=== PATIENT | female | born 1930 | race Caucasian/White ===

== ENCOUNTER 2018-04-09 11:30 | Emergency (ER) | payer OTHER ==
[~2018-04-09] VITALS: Ht 162.6 cm; Wt 69.9 kg
[2018-04-09] MEDS ORDERED: COZAAR100 MG PO (11:50)
[2018-04-09] MEDS ORDERED: AMLODIPINE BES2.5 MG (11:51)
[2018-04-09] MEDS ORDERED: RISPERDAL0.25 MG PO (11:52)
[2018-04-09] MEDS ORDERED: PLAVIX75 MG (11:52)
[2018-04-09] MEDS ORDERED: REMERON30 M1 PO (11:53)
[2018-04-09] MEDS ORDERED: PRAVASTATIN SOD40 MG PO (11:53)
== END 2018-04-09 18:58 | disposition home or self-care (01) ==
LOC: ER 11:30
DX: G25.2 Other specified forms of tremor (principal); N39.0 Urinary tract infection, site not specified